=== PATIENT | male | born 1995 | race Caucasian/White ===

== ENCOUNTER 2025-06-29 14:14 | Emergency (ER) | payer OTHER, SELFPAY ==
--- NOTE | 2025-06-29 14:20 | ED_ITS ---
HPI - URI/Sore Throat General Chief Complaint: Upper Respiratory Infection Stated Complaint: sinus Time Seen by Provider: 06/29/25 14:20 Source: patient Mode of arrival: ambulatory Limitations: no limitations History of Present Illness HPI Narrative: Teto is a 30-year-old male patient presenting to the clinic today with complaints of productive cough, sinus pressure, nasal congestion, headache, and chest congestion. He reports symptoms started approximately 3 weeks ago and has gradually gotten worse. Is coughing up some yellow phlegm. History of asthma. States he does feel short of breath and has been having to use of his inhaler more often. He is needing a refill of his fluticasone/salmeterol. Has been taking Mucinex and Sudafed for his symptoms. Denies any chest pain, fevers, chills, body aches. He is a nonsmoker. Last use of albuterol inhaler was 1 hour ago. Related Data Home Medications ?Medication ?Instructions ?Recorded ?Confirmed ?Last Taken ?Type albuterol 90 mcg-budesonide 80 inh inhalation 06/29/25 Unknown History mcg/actuation HFA aerosol inhaler (Airsupra) fluticasone 100 mcg-salmeterol 50 inhalation 06/29/25 Unknown History mcg/dose blistr powdr for inhalation Allergies Allergy/AdvReac Type Severity Reaction Status Date / Time Penicillins Allergy Mild Rash Verified 06/29/25 14:34 Review of Systems Review of Systems: Pertinent positives per HPI. Patient denies any fever, chills, rash, headache, visual changes, dizziness, chest pain, palpitations, nausea, vomiting, diarrhea, constipation, abdominal pain, or any urinary issues. PMFSH Comments At the time of my signature, I reviewed and agree with the nursing past medical, surgical, social, and family history. There is no relevant family history pertinent to the patient complaint. Exam Narrative: General: Well-developed, well nourished, in no apparent distress Head: Normocephalic, atraumatic Eyes: Pupils equally round and reactive to light bilaterally, EOM intact, sclera and conjunctive clear, no discharge, lids normal Ears: TMs intact and clear, ear canals clear, no drainage, grossly hearing normal. Nose: Nares patent, no discharge, no inflammation, no sinus tenderness. Mouth: Oral pharynx without lesions or masses, good dentition, MMM. Neck: Supple, trachea midline, no enlargement of anterior or posterior cervical nodes, no thyroid masses or goiter palpable. Cardio: Regular rate and rhythm, s1 and s2 normal, no murmur appreciated. Resp: Clear to auscultation bilaterally, no rhonchi, rales, wheezing or rubs Course Course Emergency Course: Portions of this record may have been created with voice recognition software. Level of Care: Express Care Visit Vital Signs Vital signs: Vital Signs Temperature 36.6 C 06/29/25 14:32 Pulse Rate 114 H 06/29/25 14:32 Respiratory Rate 16 06/29/25 14:32 Blood Pressure 126/77 06/29/25 14:32 Pulse Oximetry 96 06/29/25 14:32 Temperature 36.6 C 06/29/25 14:32 Pulse Rate 114 H 06/29/25 14:32 Respiratory Rate 16 06/29/25 14:32 Blood Pressure 126/77 06/29/25 14:32 Pulse Oximetry 96 06/29/25 14:32 Vital signs reviewed MDM - URI/Sore Throat MDM Narrative Medical decision making narrative: At the time of visit patient is resting comfortably on the exam table. Patient appears to be nontoxic. Complaints of productive cough, sinus pressure, nasal congestion, headache, and chest congestion. He reports symptoms started approximately 3 weeks ago and has gradually gotten worse. Is coughing up some yellow phlegm. History of asthma. States he does feel short of breath and has been having to use of his inhaler more often. He is needing a refill of his fluticasone/salmeterol. Has been taking Mucinex and Sudafed for his symptoms. Denies any chest pain, fevers, chills, body aches. He is a nonsmoker. On exam patient has bilateral TM congestion, postnasal drip, nasal congestion with yellow nasal drainage, heart rates elevated and has faint expiratory wheezing- has been taking Sudafed and used his albuterol inhaler 1 hour ago. He is spe aking in full sentences and does not have any difficulty breathing at this time Plan: I suspect patient has asthma exacerbation/rhinosinusitis. Prescription for doxycycline and prednisone was sent to the pharmacy. Also refilled patient's fluticasone/salmeterol. Supportive measures were discussed with the patient and they voiced understanding discharge instructions and agrees to treatment plan. Return precautions reviewed Differential Diagnosis Differential diagnosis: Likely upper respiratory infection, otitis media, sinusitis, viral infection, bronchitis, influenza, pharyngitis and other (COVID) Discharge Plan Discharge Clinical Impression: Acute bacterial rhinosinusitis Asthma exacerbation Qualifiers: Asthma severity: unspecified severity Asthma persistence: unspecified Qualified Code(s): J45.901 - Unspecified asthma with (acute) exacerbation Patient Disposition: Home Condition: Stable Instructions: Antibiotic Form, Asthma (ED), Rhinosinusitis (ED) Additional Instructions: Take prescription medications only as prescribed-doxycycline, prednisone, and fluticasone/salmeterol Increase fluids and stay well hydrated May take Tylenol or motrin as directed on bottle for pain/fever May use Flonase 1 spray in each nare daily May take OTC antihistamines such as Zyrtec or Claritin daily as directed on bottle May apply Vicks vapor rub to chest to open sinuses Sinus rinses for congestion Cepacol spray, cough drops, throat lozenges, warm tea with honey/lemon, gargle salt water to soothe throat BRAT diet for diarrhea Clear liquids x 24 hours then advance as tolerated for nausea/vomiting Go to the ED if you develop a worsening in your condition- high fever not controlled by Tylenol or Motrin, dehydration, weakness, lethargy, shortness of breath, or chest pain. Follow up with your PCP in 3-5 days if symptoms persist. Patient Language: Liberian Prescriptions: New doxycycline monohydrate 100 mg capsule 100 mg PO BID 7 Days Qty: 14 0RF fluticasone propion-salmeterol 100-50 mcg/dose blister with device 1 inh inhalation Q12H 30 Days Qty: 60 0RF prednisone 20 mg tablet 40 mg PO DAILY 5 Days Qty: 10 0RF No Action fluticasone propion-salmeterol 100-50 mcg/dose blister with device INHALATION Airsupra 90-80 mcg/actuation HFA aerosol inhaler INHALATION Follow-up/Referrals: Allison,Avelina Newton MD [Primary Care Provider, Unknown] Time of Disposition: 14:43 Quality NIHSS Nursing Documentation ED NIHSS nursing documentation: reviewed/agree
[2025-06-29 14:32] VITALS: BP 126/77; PULSE 114; RESP 16; TEMP 36.6; O2SAT 96
== END 2025-06-29 14:47 | disposition home or self-care (01) ==
PROVIDERS: Emergency Provider Nurse Practitioner Family; PCP Internal Medicine
DX: J45.901 Unspecified asthma with (acute) exacerbation (principal); J01.80 Other acute sinusitis; B96.89 Other specified bacterial agents as the cause of diseases classified elsewhere
CPT/HCPCS: 99213; G0463

== ENCOUNTER 2025-07-13 14:25 | Emergency (ER) | payer OTHER, SELFPAY ==
--- NOTE | ~2025-07-13 | XR_ITS ---
EXAMINATION: XR chest 2V 07/13/2025 15:02 INDICATION: Right-sided chest pain PROCEDURE: 2 view chest COMPARISON: No prior studies for comparison. FINDINGS: The lungs are clear. The cardiomediastinal silhouette is within normal limits. There are no pleural effusions. There is no pneumothorax suspected. IMPRESSION: 1: NO ACUTE CARDIOPULMONARY DISEASE. Reviewed, dictated and finalized at location O. [facility]IC OBSERVER
[2025-07-13 14:39] VITALS: BP 136/77; PULSE 122; RESP 18; TEMP 36.6; O2SAT 96
--- NOTE | 2025-07-13 14:46 | ECG_ITS ---
Test Date: 2025-07-13 14:48:57 Measurements Intervals [place] Rate: 87 P: 7 AR: 170 QRS: 9 QRSD: 95 T: 15 QT: 319 QTc: 384 Interpretive Statements SINUS RHYTHM No previous ECG available for comparison Electronically Signed On 07-13-2025 18:44:11 [employer] ATTENDANT by Daniel Blair M.D.
--- NOTE | 2025-07-13 14:47 | ED_ITS ---
HPI - Chest Pain General Chief Complaint: Chest Pain Stated Complaint: chest pain Time Seen by Provider: 07/13/25 14:47 Source: patient Mode of arrival: ambulatory Limitations: no limitations History of Present Illness HPI narrative: 30-year-old male presents with complaint of right-sided chest pain. Worse with taking a deep breath. Denies injury. Pain started yesterday and lasted approximately 5 minutes and then went away. Today with right-sided chest pain has been constant. Denies nausea vomiting. Patient states he had a cough for 3 weeks, was seen at [facility] and took doxycycline and prednisone. Finish medications 5 days ago and was feeling better. All systems reviewed and negative except as noted above. Related Data Home Medications ?Medication ?Instructions ?Recorded ?Confirmed ?Last Taken ?Type albuterol 90 mcg-budesonide 80 inh inhalation 06/29/25 Unknown History mcg/actuation HFA aerosol inhaler (Airsupra) Allergies Allergy/AdvReac Type Severity Reaction Status Date / Time Penicillins Allergy Mild Rash Verified 07/13/25 14:42 PMFSH Comments At time of signature, agree with nursing past medical, surgical, social and family history. There is no relevant family history pertinent to the presenting complaint. Exam Narrative: GENERAL: This is a well-nourished, well-developed patient, in no apparent distress. HEAD: normocephalic, atraumatic. EYES: PERRL. Sclera clear/white. Vision is grossly intact. EARS: External ears normal NOSE: External nose normal NECK: Neck supple, non-tender without lymphadenopathy, masses or thyromegaly. CARDIOVASCULAR: Regular rate and rhythm without murmurs, gallops, or rubs. RESPIRATORY: Clear to auscultation. Breath sounds equal bilaterally. No wheezes, rales, or rhonchi. SKIN: warm, Dry, intact with no suspicious lesions or rash, good texture and turgor. NEURO: awake, alert, and oriented to person, place and time. There were no obvious focal neurologic abnormalities. EXTREMITIES: No joint tenderness, effusion, or edema noted. Course Course Level of Care: [facility] Visit Vital Signs Vital signs: Vital Signs Temperature 36.6 C 07/13/25 14:39 Pulse Rate 122 H 07/13/25 14:39 Respiratory Rate 18 07/13/25 14:39 Blood Pressure 136/77 07/13/25 14:39 Pulse Oximetry 96 07/13/25 14:39 Oxygen Delivery Room Air 07/13/25 14:39 Temperature 36.6 C 07/13/25 14:39 Pulse Rate 122 H 07/13/25 14:39 Respiratory Rate 18 07/13/25 14:39 Blood Pressure 136/77 07/13/25 14:39 Pulse Oximetry 96 07/13/25 14:39 Oxygen Delivery Room Air 07/13/25 14:39 Reviewed MDM - Chest Pain MDM Narrative Medical decision making narrative: EKG heart rate 87, normal sinus rhythm, no ischemia. Pulse ox 93% room air, heart rate 112. Right-sided chest pain is constant and sharp per patient. Recommend transfer to ER to rule out PE. Patient did not want to go at this time. Differential Diagnosis Differential diagnosis: Likely pneumothorax, stable angina, atypical chest pain and other ( Pulmonary embolus) Imaging Data My impression: agree with radiologist Radiologist's impression: EXAMINATION: XR chest 2V 07/13/2025 15:02 INDICATION: Right-sided chest pain PROCEDURE: 2 view chest COMPARISON: No prior studies for comparison. FINDINGS: The lungs are clear. The cardiomediastinal silhouette is within normal limits. There are no pleural effusions. There is no pneumothorax suspected. IMPRESSION: 1: NO ACUTE CARDIOPULMONARY DISEASE. Discharge Plan Discharge Clinical Impression: Right-sided chest pain Patient Disposition: Left Against Medical Advice Condition: Stable Instructions: Chest Pain (ED) Patient Language: [place]ese Prescriptions: No Action Airsupra 90-80 mcg/actuation HFA aerosol inhaler INHALATION Follow-up/Referrals: Allison,Avelina Newton MD [Primary Care Provider, Unknown] Time of Disposition: 15:14
== END 2025-07-13 15:17 | disposition left against medical advice (07) ==
PROVIDERS: Emergency Provider Nurse Practitioner Family; PCP Internal Medicine
DX: R07.89 Other chest pain (principal); J45.909 Unspecified asthma, uncomplicated
CPT/HCPCS: 71046; 93005; 99213; G0463